=== PATIENT | female | born 1995 | race African-American/Black ===

== ENCOUNTER 2019-07-06 00:47 | Emergency (ER) | payer OTHER ==
[~2019-07-06] VITALS: Ht 165.1 cm; Wt 67.1 kg
[2019-07-06 00:53] VITALS: BP_SYST 110
--- NOTE | 2019-07-06 00:53 | NUR ---
Patient triaged and placed in waiting room. VSS and patient appears in no acute distress at this time. Accompanied by SELF, awaiting available bed, and MD notified of need for MSE.
--- NOTE | 2019-07-06 02:41 | NUR ---
Patient to ER bed 6 to gown for evaluation. Side rails up. Report given to adelso dawson.
--- NOTE | 2019-07-06 02:49 | NUR ---
ER Dr. Howell at bedside examining patient.
--- NOTE | 2019-07-06 02:51 | NUR ---
Pt presents to ER with c/o cough and congestion. Pt A&Ox4. Pt states cough began approximately one month ago. Pt states chest tightness with coughing and wheezing. Upon assessment, pt has bilaterally clear lung sounds with no wheezing and no use of accessory muscles. Pt states intermittent white mucus production with cough. Pt denies nausea, vomiting and fever. Will continue to monitor.
[2019-07-06] MEDS ORDERED: IPRATROPIUM/ALBUTEROL SULFATE 3 ML AMPUL.NEB (DUONEB) INH ONE (03:00)
--- NOTE | 2019-07-06 03:06 | NUR ---
RT at bedside administering breathing treatment. Pt tolerated well.
--- NOTE | 2019-07-06 03:20 | NUR ---
Lab at bedside.
[2019-07-06 03:34] LABS: BASOPHILS # (AUTO) 0.1 K/uL (0.0-0.2); BASOPHILS % (AUTO) 1.1 % (0.0-2.0); EOSINOPHILS # (AUTO) 0.1 K/uL (0.0-0.4); EOSINOPHILS % (AUTO) 1.2 % (0.0-4.0); HEMATOCRIT 40.3 % (36-48); HEMOGLOBIN 13.5 g/dL (12.0-16.0); LYMPHOCYTES # (AUTO) 1.8 K/uL (1.0-5.5); LYMPHOCYTES % (AUTO) 24.9 % (20.5-51.5); MEAN CORPUSCULAR HEMOGLOBIN 32 pg (27-31); MEAN CORPUSCULAR HGB CONC 34 % (32-36); MEAN CORPUSCULAR VOLUME 96 fL (79.0-98.0); MONOCYTES # (AUTO) 0.6 K/uL (0.0-1.0); MONOCYTES % (AUTO) 7.9 % (1.7-9.3); NEUTROPHILS # (AUTO) 4.8 K/uL (1.8-7.7); NEUTROPHILS % (AUTO) 64.9 % (40.0-70.0); PLATELET COUNT (AUTO) 244 K/uL (130-430); RED BLOOD CELL COUNT(AUTO) 4.21 MIL/uL (4.2-6.2); WHITE BLOOD COUNT (AUTO) 7.4 K/uL (4.8-10.8)
[2019-07-06] MEDS ORDERED: AZITHROMYCIN 250 MG TABLET PO ONE (04:00)
[2019-07-06] MEDS ORDERED: methylPREDNISolone SOD SUCC/PF 62.5 MG/ML VIAL IM ONE (04:15)
--- NOTE | 2019-07-06 04:25 | NUR ---
Pt medicated per MD orders. Pt tolerated well. Will continue to monitor.
[2019-07-06] MEDS ORDERED: OMEPRAZOLE Non-Formulary 20 MG CAPSULE.DR PO ONE (05:30)
[2019-07-06 05:40] VITALS: BP_SYST 118
--- NOTE | 2019-07-06 05:40 | NUR ---
Patient given written and verbal discharge instructions and verbalizes understanding. ER MD Howell discussed with patient the results and treatment provided. Patient in stable condition. ID arm band removed. Rx of zithromax, albuterol, prilosec, prednisone given. Patient educated on pain management and to follow up with PMD. Pain Scale 0/10. Opportunity for questions provided and answered. Medication side effect fact sheet provided.
== END 2019-07-06 05:40 | disposition home or self-care (01) ==
LOC: SED 00:47
DX: J20.9 Acute bronchitis, unspecified (principal); K21.9 Gastro-esophageal reflux disease without esophagitis; Z88.0 Allergy status to penicillin
CPT/HCPCS: 36415; 71046; 85025; 93005; 94640; 96372; 99284; J2930; J7620; Q0144